=== PATIENT | male | born 1950 | race Caucasian/White ===

== ENCOUNTER 2019-02-01 19:10 | Inpatient (IN) | payer MEDICARE, OTHER ==
[2019-02-01] VITALS (8 sets, daily range): BP systolic 97–133; BP diastolic 65–79; BMI 32.5
[~2019-02-01] VITALS: Ht 170.2 cm; Wt 92.0 kg
[2019-02-01] MEDS ORDERED: SYNTHROID150 MCG PO (19:17)
[2019-02-01] MEDS ORDERED: VASOTEC20 MG PO (19:18)
[2019-02-01] MEDS ORDERED: ZOCOR20 MG PO (19:18)
[2019-02-01] MEDS ORDERED: PROTONIX40 MG PO (19:18)
[2019-02-01] MEDS ORDERED: ZETIA10 MG PO (19:19)
[2019-02-01] MEDS ORDERED: AXIRON30 MG/1.5 (19:19)
[2019-02-01] MEDS ORDERED: BAYER CHEWABLE81 MG PO (19:20)
[2019-02-01 20:00] LABS: BASOPHILS 0.7 % (0-2); EOSINOPHILS 1.8 % (0-7); HEMATOCRIT 48.8 % (42.0-54.0); HEMOGLOBIN 17.1 g/dL (13.5-17.5); IMMATURE GRANULOCYTES 0.2 % (0-5); LYMPHOCYTES 30.9 % (15-50); MCH 34.3 pg (26.0-34.0); MCV 97.8 fL (80.0-100.0); MEAN PLATELET VOLUME 10.1 fL (7.4-10.4); NEUTROPHILS 57.4 % (40-80); PLATELET COUNT 228 10x3/uL (130-400); RBC 4.99 10x6/uL (4.20-6.10); RDW 13.2 % (11.5-14.5); WBC 8.3 10x3/uL (4.8-10.8)
[2019-02-01 20:08] LABS: INR 1.32 (0.85-1.17); PROTIME 15.8 SECONDS (11.6-15.0)
[2019-02-01 20:09] LABS: APTT 75.5 SECONDS (22.8-39.4)
[2019-02-01 20:32] LABS: ALBUMIN 3.4 g/dL (3.4-5.0); ALKALINE PHOSPHATASE 53 U/L (46-116); ALT (SGPT) 36 U/L (10-68); BILIRUBIN - TOTAL 0.42 mg/dL (0.2-1.3); CALC OSMOLALITY 284 mosm/kg (275-300); CALCIUM 7.7 mg/dL (8.5-10.1); CARBON DIOXIDE 25.7 mmol/L (21.0-32.0); CHLORIDE - SERUM 106 mmol/L (98-107); CKMB 2.3 U/L (0.0-3.6); CREATINE KINASE 337 UL (21-232); CREATININE - SERUM 1.1 mg/dL (0.6-1.3); GLUCOSE 133 mg/dL (74-106); MAGNESIUM - SERUM 2.6 mg/dL (1.8-2.4); PRO BNP 80 pg/mL (0-125); PROTEIN - SERUM 6.6 g/dL (6.4-8.2); SODIUM 141 mmol/L (136-145); UREA NITROGEN 18 mg/dL (7-18); eGFR NON AFRICAN AMERICAN 71 mL/min (90-120)
[2019-02-02] VITALS: BP 124/54
[2019-02-02 05:00] VITALS: BP 125/68
[2019-02-02 08:32] VITALS: Ht 170.2 cm; Wt 92.0 kg
[2019-02-02 08:41] LABS: BASOPHILS 0.7 % (0-2); EOSINOPHILS 2.7 % (0-7); HEMATOCRIT 50.2 % (42.0-54.0); HEMOGLOBIN 17.7 g/dL (13.5-17.5); IMMATURE GRANULOCYTES 0.4 % (0-5); LYMPHOCYTES 29.5 % (15-50); MCH 34.6 pg (26.0-34.0); MCHC 35.3 g/dL (31.0-37.0); MEAN PLATELET VOLUME 9.9 fL (7.4-10.4); MONOCYTES 7.8 % (2-11); NEUTROPHILS 58.9 % (40-80); PLATELET COUNT 194 10x3/uL (130-400); RBC 5.12 10x6/uL (4.20-6.10); RDW 13.1 % (11.5-14.5); WBC 8.1 10x3/uL (4.8-10.8)
[2019-02-02 08:46] VITALS: BP 138/77
[2019-02-02 08:52] LABS: CALC OSMOLALITY 282 mosm/kg (275-300); CALCIUM 8.4 mg/dL (8.5-10.1); CARBON DIOXIDE 25.5 mmol/L (21.0-32.0); CHLORIDE - SERUM 105 mmol/L (98-107); GLUCOSE 153 mg/dL (74-106); SODIUM 140 mmol/L (136-145); UREA NITROGEN 14 mg/dL (7-18); eGFR NON AFRICAN AMERICAN 79 mL/min (90-120)
[2019-02-02 12:00] VITALS: BP 125/62
[2019-02-02 12:39] LABS: APPEARANCE CLEAR (CLEAR); COLOR STRAW (YELLOW); NITRITE NEGATIVE (NEGATIVE); PROTEIN NEGATIVE (NEGATIVE)
[2019-02-02 12:40] LABS: BILIRUBIN NEGATIVE (NEGATIVE); GLUCOSE 1000 mg/dL (NEGATIVE); KETONE NEGATIVE (NEGATIVE); UROBILINOGEN NORMAL (NORMAL)
[2019-02-02 16:11] VITALS: BP 128/71
[2019-02-02 21:23] VITALS: BP 131/63
[2019-02-03 01:20] VITALS: BP 117/72
[2019-02-03 05:33] VITALS: BP 156/76
[2019-02-03 06:52] LABS: BASOPHILS 0.7 % (0-2); EOSINOPHILS 3.7 % (0-7); HEMATOCRIT 47.8 % (42.0-54.0); HEMOGLOBIN 16.5 g/dL (13.5-17.5); IMMATURE GRANULOCYTES 0.3 % (0-5); LYMPHOCYTES 34.9 % (15-50); MCH 34.1 pg (26.0-34.0); MCHC 34.5 g/dL (31.0-37.0); MCV 98.8 fL (80.0-100.0); MEAN PLATELET VOLUME 10.4 fL (7.4-10.4); MONOCYTES 9.9 % (2-11); NEUTROPHILS 50.5 % (40-80); PLATELET COUNT 200 10x3/uL (130-400); RBC 4.84 10x6/uL (4.20-6.10); RDW 13.3 % (11.5-14.5); WBC 7.1 10x3/uL (4.8-10.8)
[2019-02-03 07:11] LABS: ALBUMIN 3.4 g/dL (3.4-5.0); ANION GAP 11.7 mmol/L (8-16); BILIRUBIN - TOTAL 0.3 mg/dL (0.2-1.3); CALCIUM 8.2 mg/dL (8.5-10.1); CARBON DIOXIDE 26.1 mmol/L (21.0-32.0); CREATININE - SERUM 1.1 mg/dL (0.6-1.3); MAGNESIUM - SERUM 2.3 mg/dL (1.8-2.4); POTASSIUM - SERUM 3.8 mmol/L (3.5-5.1); PROTEIN - SERUM 6.3 g/dL (6.4-8.2)
[2019-02-03 08:00] VITALS: BP 143/72
[2019-02-03 11:40] VITALS: BP 111/60
[2019-02-03] MEDS ORDERED: XARELTO20 MG PO (11:41)
[2019-02-03] MEDS ORDERED: MULTAQ400 MG PO (11:42)
--- NOTE | 2019-02-03 15:44 | MORECARE ---
CASE MANAGEMENT DISCHARGE SUMMARY PATIENT: WILNER ROY UNIT: [id number] ADM DATE: 02/02/19 AGE: 68 : 52 SEX: M ROOM/BED: D.2119 AUTHOR: ERICA KENNEDY PHYSICIAN: REFERRING PHYSICIAN: IRIS TSAI MD DATE OF SERVICE: 02/03/19 Discharge Plan Patient Name: WILNER ROY [facility] : 1950 Planned Disposition: Home Anticipated Discharge Date: 02/03/19 Discharge Date: 02/03/2019 Expected LOS: 1 Initial Reviewer: [email or web address] Initial Review Date: 02/03/2019 Generated: 02/03/19 4:43 pm DCPIA - Discharge Planning Initial Assessment Updated by [email or web address]: Junaid Nieto on 02/03/19 3:43 pm * Is the patient Alert and Oriented? Yes * How many steps to enter\exit or inside your home? 0-O / 11-I * PCP DR. ANALI BEAUCHAMP * Pharmacy [facility] IN [place] * Preadmission Environment Home with Family * ADLs Independent * Equipment CPAP * Other Equipment [employer], [employer] - MEDICAL EQUIPMENT PROVIDER * List name and contact numbers for known caregivers / representatives who currently or will assist patient after discharge: JUAN ROY, DTR, * Verbal permission to speak to the caregivers and representatives has been obtained from the patient. N/A * Community resources currently utilized None * Please name any agencies selected above. NONE * Additional services required to return to the preadmission environment? No * Can the patient safely return to the preadmission environment? Yes * Has this patient been hospitalized within the prior 30 days at any hospital? No Patient Name: WILNER ROY Page [id number] at 1544 All edits/amendments must be made on the electronic document DICTATION DATE: 02/03/191542 ENVIRONMENTAL ISSUES INSTRUCTOR: DUY 02/03/191542 RPT#: [id number] DC DATE:02/03/19 STATUS: DIS IN [facility] [address] [place] [address] END OF REPORT
--- NOTE | 2019-02-03 15:52 | MORECARE ---
CASE MANAGEMENT DISCHARGE SUMMARY PATIENT: WILNER ROY UNIT: [id number] ADM DATE: 02/02/19 AGE: 68 : 52 SEX: M ROOM/BED: D.1735 AUTHOR: MARCIA,DOC PHYSICIAN: REFERRING PHYSICIAN: IRIS TSAI MD DATE OF SERVICE: 02/03/19 Discharge Plan Patient Name: WILNER ROY Facility: [facility]:[place] : 1950 Planned Disposition: Home Anticipated Discharge Date: 02/03/19 Discharge Date: 02/03/2019 Expected LOS: 1 Initial Reviewer: [email or web address] Initial Review Date: 02/03/2019 Generated: 02/03/19 4:52 pm Comments DCP- Discharge Planning Updated by [email or web address]: Junaid Nieto on 02/03/19 2:[address] Patient Name: WILNER ROY Admission Status: ER Accout number: [id number] Admission Date: 02-02-2019 : 1950 Admission Diagnosis: Attending: IRIS TSAI Current LOS: 1 Anticipated DC Date: 02-03-2019 Planned Disposition: Home Primary Insurance: MEDICARE A & B Discharge Planning Comments: CM MET WITH PT IN ROOM TO DISCUSS DISCHARGE PLANNING AND NEEDS. PT REPORTS LIVING AT HOME INDEPENDENTLY WITH ADULT DAUGHTER. PT HAS CPAP FROM [facility] [facility] OUT OF [place]. PT HAS NO OUTSIDE SERVICES ASSISTING IN THE HOME. CM DISCUSSED AVAILABILITY OF HOME HEALTH, REHAB SERVICES AND MEDICAL EQUIPMENT. PT DENIES DISCHARGE NEEDS, REPORTS HIS DAUGHTER IS HERE TO PICK HIM UP FOR DISCHARGE HOME. RETAIL SALES ASSOCIATE SEASONAL NURSE NOTIFIED. Chief Wheelage Clerk: Junaid Nieto DCPIA - Discharge Planning Initial Assessment Updated by [email or web address]: Junadi Nieto on 02/03/19 3:43 pm * Is the patient Alert and Oriented? Yes * How many steps to enter\exit or inside your home? 0-O / 11-I * PCP DR. ANALI BEAUCHAMP * Pharmacy [facility] IN [place] * Preadmission Environment Home with Family * ADLs Independent * Equipment CPAP * Other Equipment [employer] - MEDICAL EQUIPMENT PROVIDER * List name and contact numbers for known caregivers / representatives who currently or will assist patient after discharge: JUAN MANUELA, DTR, * Verbal permission to speak to the caregivers and representatives has been obtained from the patient. N/A * Community resources currently utilized None * Please name any agencies selected above. NONE * Additional services required to return to the preadmission environment? No * Can the patient safely return to the preadmission environment? Yes * Has this patient been hospitalized within the prior 30 days at any hospital? No Last DP export: 02/03/19 2:44 p Patient Name: WILNER ROY Page [id number] at 1552 All edits/amendments must be made on the electronic document DICTATION DATE: 02/03/191550 DISPATCHER CHIEF COAL SLURRY: DUY 02/03/191550 RPT#: [id number] DC DATE:02/03/19 STATUS: DIS IN [facility] [address] [place] [address] END OF REPORT
[2019-02-11 15:14] LABS: AEROBE ID Final report (())
== END 2019-02-03 14:05 | disposition home or self-care (01) | DRG 310 ==
LOC: D.ER 19:10 → OBSVTIME 20:13 → D.EDHOLD 20:13 → D.M2 20:25
PROVIDERS: Family Medicine; ADMIT Internal Medicine Nephrology; ATTEND Internal Medicine Nephrology
DX: I48.91 Unspecified atrial fibrillation (principal); I10 Essential (primary) hypertension; K21.9 Gastro-esophageal reflux disease without esophagitis; M19.90 Unspecified osteoarthritis, unspecified site; R79.89 Other specified abnormal findings of blood chemistry; E03.9 Hypothyroidism, unspecified; Z87.891 Personal history of nicotine dependence

== ENCOUNTER 2019-03-16 09:45 | Inpatient (IN) | payer MEDICARE, OTHER ==
[~2019-03-16 09:45] MED LIST: AXIRON30 MG/1.5; BAYER CHEWABLE81 MG PO; MULTAQ400 MG PO; PROTONIX40 MG PO; SYNTHROID150 MCG PO; VASOTEC20 MG PO; XARELTO20 MG PO; ZETIA10 MG PO; ZOCOR20 MG PO
[2019-03-16 10:12] VITALS: BP 123/62
[2019-03-16 10:36] LABS: BASOPHILS 0.3 % (0-2); HEMATOCRIT 46.2 % (42.0-54.0); HEMOGLOBIN 16.2 g/dL (13.5-17.5); IMMATURE GRANULOCYTES 0.3 % (0-5); LYMPHOCYTES 20.8 % (15-50); MCH 33.8 pg (26.0-34.0); MCHC 35.1 g/dL (31.0-37.0); MCV 96.5 fL (80.0-100.0); MONOCYTES 8.6 % (2-11); RBC 4.79 10x6/uL (4.20-6.10); RDW 12.3 % (11.5-14.5); WBC 11.7 10x3/uL (4.8-10.8)
[2019-03-16 10:43] LABS: PLATELET COUNT 287 10x3/uL (130-400)
[2019-03-16 10:52] LABS: ALBUMIN 3.5 g/dL (3.4-5.0); ALKALINE PHOSPHATASE 47 U/L (46-116); ALT (SGPT) 39 U/L (10-68); CALC OSMOLALITY 275 mosm/kg (275-300); CALCIUM 8.5 mg/dL (8.5-10.1); CARBON DIOXIDE 26.1 mmol/L (21.0-32.0); CHLORIDE - SERUM 104 mmol/L (98-107); CREATININE - SERUM 1.1 mg/dL (0.6-1.3); GLUCOSE 101 mg/dL (74-106); POTASSIUM - SERUM 3.9 mmol/L (3.5-5.1); PROTEIN - SERUM 6.8 g/dL (6.4-8.2); SODIUM 138 mmol/L (136-145); UREA NITROGEN 13 mg/dL (7-18); eGFR NON AFRICAN AMERICAN 71 mL/min (90-120)
[2019-03-16 11:11] LABS: MAGNESIUM - SERUM 2.5 mg/dL (1.8-2.4)
[2019-03-16 11:12] LABS: CKMB 4.3 U/L (0.0-3.6); CREATINE KINASE 1545 UL (21-232)
--- NOTE | 2019-03-16 12:13 | NUR ---
PT SITTING IN BED, SEMI MATHEWS'S WITH RESPIRATIONS EVEN AND UNLABORED. NO SIGNS OF DISRESS. CALL LIGHT INREACH. BLANKET PROVIDED AND LIGHTS DIMMED FOR COMFORT. WILL CONTINUE TO MONITOR.
[2019-03-16 12:30] VITALS: BP 122/61
[2019-03-16 13:30] VITALS: BP 125/68
--- NOTE | 2019-03-16 15:00 | NUR ---
SURGICAL CONSENT FORMS SIGNED, THIS NURSE INSTRUCTED TO PRE-OP PT PER NATALYA IN OR. NO PRE-OP ORDERS ON EMAR AT THAT TIME. EMAR PRINTED AND GIVEN TO Neda FRANCISCO, ED MAINTENANCE MILLWRIGHT AT 0204. NURSE ENTERED PT'S ROOM AT 1500 AND PT WAS NO LONGER IN ED. MAINTENANCE MILLWRIGHT NOTIFIED. UNABLE TO GATHER DISPO VS D/T NOT BEING IN ED AND BEING TAKEN TO OR WITHOUT THIS NURSE BEING NOTIFIED.
--- NOTE | 2019-03-16 15:23 | MORECARE ---
CASE MANAGEMENT DISCHARGE SUMMARY PATIENT: WILNER REED UNIT: [id number] ADM DATE: 03/16/19 AGE: 68 : 52 SEX: M ROOM/BED: D.E06 AUTHOR: ERICA KENNEDY PHYSICIAN: REFERRING PHYSICIAN: TESSIE SONI MD DATE OF SERVICE: 03/16/19 Discharge Plan Patient Name: WILNER REED [facility] [facility] 1950 Planned Disposition: Home Anticipated Discharge Date: 03/18/19 Discharge Date: Expected LOS: 2 Initial Reviewer: [email or web address] Initial Review Date: 03/16/2019 Generated: 03/16/19 4:23 pm DCPIA - Discharge Planning Initial Assessment Updated by [email or web address]: Britany Guerrier on 03/16/19 3:22 pm * Is the patient Alert and Oriented? Yes * How many steps to enter\exit or inside your home? [place] * PCP [facility] Aguilar in [facility] * Pharmacy [facility] in [place] * Preadmission Environment Home with Family * ADLs Independent * Equipment None * List name and contact numbers for known caregivers / representatives who currently or will assist patient after discharge: Lucia Reed - daughter - [phone] * Verbal permission to speak to the caregivers and representatives has been obtained from the patient. Yes * Community resources currently utilized None * Additional services required to return to the preadmission environment? No * Can the patient safely return to the preadmission environment? Yes * Has this patient been hospitalized within the prior 30 days at any hospital? No Patient Name: WILNER REED Page 38984 at 1523 All edits/amendments must be made on the electronic document DICTATION DATE: 03/16/19 1523 PEDIATRIC DERMATOLOGIST: DUY 03/16/19 1523 RPT#: [id number] DC DATE: STATUS: ADM IN [facility] [address] [place] [address] END OF REPORT
--- NOTE | 2019-03-16 15:31 | MORECARE ---
CASE MANAGEMENT DISCHARGE SUMMARY PATIENT: WILNER REED UNIT: [id number] ADM DATE: 03/16/19 AGE: 68 : 52 SEX: M ROOM/BED: D.E06 AUTHOR: MARCIADOC PHYSICIAN: REFERRING PHYSICIAN: TESSIE SONI MD DATE OF SERVICE: 03/16/19 Discharge Plan Patient Name: WILNER REED Facility: [facility]:[place] : 1950 Planned Disposition: Home Anticipated Discharge Date: 03/18/19 Discharge Date: Expected LOS: 2 Initial Reviewer: [email or web address] Initial Review Date: 03/16/2019 Generated: 03/16/19 4:31 pm DCP- Discharge Planning Updated by [email or web address]: Britany Guerrier on 03/16/19 2:[address] Patient Name: WILNER REED Admission Status: ER Accout number: [id number] Admission Date: 03-16-2019 : 1950 Admission Diagnosis: Attending: TESSIE PALACIOS Current LOS: 1 Anticipated DC Date: 03-18-2019 Planned Disposition: Home Primary Insurance: MEDICARE A & B Discharge Planning Comments: CM met with patient to complete initial dc planning assessment. CM educated patient on the CM role and verbal consent given by patient to complete assessment. CM verified patient's address, phone number, and emergency contact phone numbers. Patient lives at home with his daughter and reports he is independent in his care at home. At discharge patient plans to return home with his daughter and feels this is a safe discharge. CM discussed availability of home health, rehab services, and medical equipment. Patient denied known discharge needs at this time. Patient reports he has his truck in the parking lot that he can drive himself at dc but is he is not able his daughter will transport him/her home at time of discharge. CM will continue to follow and will assist as needed with dc plans/needs. Store Receiver: Britany Guerrier RN, [facility] DCPIA - Discharge Planning Initial Assessment Updated by [email or web address]: Britany Guerrier on 03/16/19 3:22 pm * Is the patient Alert and Oriented? Yes * How many steps to enter\exit or inside your home? ONe * PCP Dr. Aguilar in [place] * Pharmacy [facility] in [place] * Preadmission Environment Home with Family * ADLs Independent * Equipment None * List name and contact numbers for known caregivers / representatives who currently or will assist patient after discharge: Lucia Reed - daughter - [phone] * Verbal permission to speak to the caregivers and representatives has been obtained from the patient. Yes * Community resources currently utilized None * Additional services required to return to the preadmission environment? No * Can the patient safely return to the preadmission environment? Yes * Has this patient been hospitalized within the prior 30 days at any hospital? No Last DP export: 03/16/19 2:23 p Patient Name: WILNER REED Page 58893 at 1531 All edits/amendments must be made on the electronic document DICTATION DATE: 03/16/191530 CONCRETE VIBRATOR OPERATOR: DUY 03/16/191530 RPT#: [id number] DC DATE: STATUS: ADM IN [facility] [address] [place] [address] END OF REPORT
[2019-03-16 16:43] VITALS: BP 119/67
[2019-03-16 17:50] VITALS: BMI 31.4
[2019-03-16 20:11] VITALS: BP 120/51
[2019-03-17 00:20] VITALS: BP 113/59
[2019-03-17 04:55] VITALS: BP 118/59
[2019-03-17 06:44] LABS: CALC OSMOLALITY 279 mosm/kg (275-300); CALCIUM 8.3 mg/dL (8.5-10.1); CARBON DIOXIDE 26.4 mmol/L (21.0-32.0); CHLORIDE - SERUM 105 mmol/L (98-107); GLUCOSE 126 mg/dL (74-106); POTASSIUM - SERUM 4.4 mmol/L (3.5-5.1); SODIUM 139 mmol/L (136-145); UREA NITROGEN 12 mg/dL (7-18); eGFR NON AFRICAN AMERICAN 79 mL/min (90-120)
--- NOTE | 2019-03-17 07:45 | NUR ---
PT AAOX4 RESP EVEN AND NONLABORED, NO SIGNS OF DISTRESS NOTED, REQUESTING SOME WATER AND FOR URINAL TO BE EMPITED AT THIS TIME WILL CONTINUE TO MONITOR, CL IN REACH
[2019-03-17 07:58] LABS: BASOPHILS 0.1 % (0-2); EOSINOPHILS 0 % (0-7); HEMATOCRIT 41.7 % (42.0-54.0); HEMOGLOBIN 14.5 g/dL (13.5-17.5); IMMATURE GRANULOCYTES 0.3 % (0-5); LYMPHOCYTES 7.2 % (15-50); MCH 33.4 pg (26.0-34.0); MCHC 34.8 g/dL (31.0-37.0); MCV 96.1 fL (80.0-100.0); MEAN PLATELET VOLUME 10.7 fL (7.4-10.4); MONOCYTES 4.8 % (2-11); NEUTROPHILS 87.6 % (40-80); PLATELET COUNT 285 10x3/uL (130-400); RBC 4.34 10x6/uL (4.20-6.10); RDW 12.3 % (11.5-14.5); WBC 15.1 10x3/uL (4.8-10.8)
[2019-03-17 09:14] VITALS: BP 128/64
[2019-03-17 12:00] VITALS: BP 148/62
[2019-03-17 15:01] VITALS: BP 133/60
--- NOTE | 2019-03-17 18:42 | NUR ---
I have reviewed this patient and I concur with the Shift Assessment completed by the Licensed Practical Nurse today this shift.
[2019-03-17 20:00] VITALS: BP 138/55
[2019-03-18 00:38] VITALS: BP 120/57
[2019-03-18 05:03] VITALS: BP 122/63
[2019-03-18 06:02] LABS: BASOPHILS 0.4 % (0-2); EOSINOPHILS 1.9 % (0-7); HEMATOCRIT 41.9 % (42.0-54.0); HEMOGLOBIN 14.3 g/dL (13.5-17.5); IMMATURE GRANULOCYTES 0.3 % (0-5); LYMPHOCYTES 27.1 % (15-50); MCH 33.3 pg (26.0-34.0); MCHC 34.1 g/dL (31.0-37.0); MCV 97.7 fL (80.0-100.0); MEAN PLATELET VOLUME 10.5 fL (7.4-10.4); NEUTROPHILS 62.3 % (40-80); PLATELET COUNT 271 10x3/uL (130-400); RBC 4.29 10x6/uL (4.20-6.10); RDW 12.8 % (11.5-14.5)
[2019-03-18 06:03] LABS: ALKALINE PHOSPHATASE 37 U/L (46-116); ALT (SGPT) 39 U/L (10-68); BILIRUBIN - TOTAL 0.27 mg/dL (0.2-1.3); CALC OSMOLALITY 285 mosm/kg (275-300); CALCIUM 8.1 mg/dL (8.5-10.1); CARBON DIOXIDE 28.7 mmol/L (21.0-32.0); CHLORIDE - SERUM 108 mmol/L (98-107); CREATININE - SERUM 0.8 mg/dL (0.6-1.3); GLUCOSE 111 mg/dL (74-106); POTASSIUM - SERUM 4.3 mmol/L (3.5-5.1); SODIUM 143 mmol/L (136-145); UREA NITROGEN 12 mg/dL (7-18); eGFR NON AFRICAN AMERICAN > 90 mL/min (90-120)
[2019-03-18 06:36] LABS: WBC 11.1 10x3/uL (4.8-10.8)
--- NOTE | 2019-03-18 06:45 | NUR ---
MEDS GIVEN PER MAR. ALL NEEDS MET.
[2019-03-18 09:16] VITALS: BP 114/61
[2019-03-18 13:37] VITALS: BP 130/67
[2019-03-18 16:48] VITALS: BP 114/61
[2019-03-18 20:00] VITALS: BP 140/64
--- NOTE | 2019-03-18 20:00 | NUR ---
ASSESSMENT PER FLOWSHEET. DRESSING TO RT LEG C/D/I. BILATERAL PLEXI BOOTS ON SALINE LOCK PATENT LEFT FOREARM. ALERT/ORIENTED X3. DUNG DRAIN PATENT AND COMPRESSED. WITH BLOODY DRAINAGE NOTED.MARC BOWMAN ON. DENIES PAIN SR UP X2 CALL LIGHT WITHIN REACH.
--- NOTE | 2019-03-18 23:00 | NUR ---
EYES CLOSED RESPIRATIONS WITH EASE AND UNLABORED. VOIDS WELL IN URINAL.
[2019-03-19] VITALS: BP 121/60
[2019-03-19 04:00] VITALS: BP 119/69
[2019-03-19 06:17] LABS: BASOPHILS 0.5 % (0-2); EOSINOPHILS 3.6 % (0-7); HEMATOCRIT 42.5 % (42.0-54.0); HEMOGLOBIN 14.5 g/dL (13.5-17.5); IMMATURE GRANULOCYTES 0.4 % (0-5); LYMPHOCYTES 34.2 % (15-50); MCH 33.4 pg (26.0-34.0); MCHC 34.1 g/dL (31.0-37.0); MCV 97.9 fL (80.0-100.0); MEAN PLATELET VOLUME 10.4 fL (7.4-10.4); MONOCYTES 8.4 % (2-11); NEUTROPHILS 52.9 % (40-80); PLATELET COUNT 274 10x3/uL (130-400); RBC 4.34 10x6/uL (4.20-6.10); RDW 12.9 % (11.5-14.5); WBC 9.4 10x3/uL (4.8-10.8)
[2019-03-19 06:35] LABS: ALKALINE PHOSPHATASE 41 U/L (46-116); ALT (SGPT) 46 U/L (10-68); BILIRUBIN - TOTAL 0.33 mg/dL (0.2-1.3); CALC OSMOLALITY 279 mosm/kg (275-300); CALCIUM 8.5 mg/dL (8.5-10.1); CARBON DIOXIDE 28.5 mmol/L (21.0-32.0); CHLORIDE - SERUM 107 mmol/L (98-107); CREATININE - SERUM 0.9 mg/dL (0.6-1.3); GLUCOSE 98 mg/dL (74-106); POTASSIUM - SERUM 4.2 mmol/L (3.5-5.1); PROTEIN - SERUM 6.2 g/dL (6.4-8.2); SODIUM 140 mmol/L (136-145); UREA NITROGEN 14 mg/dL (7-18); eGFR NON AFRICAN AMERICAN 90 mL/min (90-120)
[2019-03-19 08:45] VITALS: BP 122/78
--- NOTE | 2019-03-19 11:43 | MORECARE ---
CASE MANAGEMENT DISCHARGE SUMMARY PATIENT: WILNER REED UNIT: [id number] ADM DATE: 03/16/19 AGE: 68 : 54 SEX: M ROOM/BED: D.2216 AUTHOR: MARCIA,DOC PHYSICIAN: REFERRING PHYSICIAN: TESSIE SONI MD DATE OF SERVICE: 03/19/19 Discharge Plan Patient Name: WILNER REED Facility: [facility]:[place] : 1950 Planned Disposition: Home Anticipated Discharge Date: 03/18/19 Discharge Date: Expected LOS: 2 Initial Reviewer: [id number] Initial Review Date: 03/16/2019 Generated: 03/19/19 12:42 pm DCP- Discharge Planning Updated by [email or web address]: Britany Guerrier on 03/16/19 2:[address] Patient Name: WILNER REED Admission Status: ER Accout number: [id number] Admission Date: 03-16-2019 : 1950 Admission Diagnosis: Attending: TESSIE PALACIOS Current LOS: 1 Anticipated DC Date: 03-18-2019 Planned Disposition: Home Primary Insurance: MEDICARE A & B Discharge Planning Comments: CM met with patient to complete initial dc planning assessment. CM educated patient on the CM role and verbal consent given by patient to complete assessment. CM verified patient's address, phone number, and emergency contact phone numbers. Patient lives at home with his daughter and reports he is independent in his care at home. At discharge patient plans to return home with his daughter and feels this is a safe discharge. CM discussed availability of home health, rehab services, and medical equipment. Patient denied known discharge needs at this time. Patient reports he has his truck in the parking lot that he can drive himself at dc but is he is not able his daughter will transport him/her home at time of discharge. CM will continue to follow and will assist as needed with dc plans/needs. Tire Installer: Britany Guerrier RN, [facility] DCPIA - Discharge Planning Initial Assessment Updated by [email or web address]: Britany Guerrier on 03/16/19 3:22 pm * Is the patient Alert and Oriented? Yes * How many steps to enter\exit or inside your home? ONe * PCP [facility] Aguilar in [facility] * Pharmacy [facility] in [place] * Preadmission Environment Home with Family * ADLs Independent * Equipment None * List name and contact numbers for known caregivers / representatives who currently or will assist patient after discharge: Lucia Reed - daughter - [phone] * Verbal permission to speak to the caregivers and representatives has been obtained from the patient. Yes * Community resources currently utilized None * Additional services required to return to the preadmission environment? No * Can the patient safely return to the preadmission environment? Yes * Has this patient been hospitalized within the prior 30 days at any hospital? No Coverage Notice Reviewer: [email or web address] Justice Notice Issued Date-Time: 03/19/2019 11:35 Notice Type: IM Discharge Notice Notice Delivered To: Patient Relationship to Patient: Cook Sauce Name: Delivery Method: HAND - Hand Delivered So Days: Prior Verbal Notification: Recipient Understood Notice: Yes Recipient Signature: Yes Med Rec Note Co-signed by Attending: Coverage Notice Comment: Reviewer: [email or web address] Justice Notice Issued Date-Time: 03/19/2019 11:35 Notice Type: Patient Choice Letter Notice Delivered To: Patient Relationship to Patient: Cook Sauce Name: Delivery Method: - So Days: Prior Verbal Notification: Recipient Understood Notice: Yes Recipient Signature: Yes Med Rec Note Co-signed by Attending: Coverage Notice Comment: Last DP export: 03/16/19 2:31 p Patient Name: WILNER REED Page 05246 at 1143 All edits/amendments must be made on the electronic document DICTATION DATE: 03/19/19 1142 NET DEVELOPER SOFTWARE ENGINEER C: DUY 03/19/19 1142 RPT#: [id number] DC DATE: STATUS: ADM IN [facility] [address] [place] [address] END OF REPORT
--- NOTE | 2019-03-19 11:52 | MORECARE ---
CASE MANAGEMENT DISCHARGE SUMMARY PATIENT: WILNER REED UNIT: [id number] ADM DATE: 03/16/19 AGE: 68 : 54 SEX: M ROOM/BED: D.2216 AUTHOR: MARCIADOC PHYSICIAN: REFERRING PHYSICIAN: TESSIE SONI MD DATE OF SERVICE: 03/19/19 Discharge Plan Patient Name: WILNER REED Facility: [facility]:[place] : 1950 Planned Disposition: Home Anticipated Discharge Date: 03/18/19 Discharge Date: Expected LOS: 2 Initial Reviewer: [email or web address] Initial Review Date: 03/16/2019 Generated: 03/19/19 12:52 pm Comments DCP- Discharge Planning Updated by [email or web address]: Ericka Justice on 03/19/19 10:[address] Patient will be discharging home with [facility] in [facility] signed and placed in chart. IMM served and placed in chart. I spoke with Luaren at the [facility] office they will accept. Patient will be driving himself home and denies any problems with that DCP- Discharge Planning Updated by [email or web address]: Britany Guerrier on 03/16/19 2:[address] Patient Name: WILNER REED Admission Status: ER Accout number: [id number] Admission Date: 03-16-2019 : 1950 Admission Diagnosis: Attending: TESSIE PALACIOS Current LOS: 1 Anticipated DC Date: 03-18-2019 Planned Disposition: Home Primary Insurance: MEDICARE A & B Discharge Planning Comments: CM met with patient to complete initial dc planning assessment. CM educated patient on the CM role and verbal consent given by patient to complete assessment. CM verified patient's address, phone number, and emergency contact phone numbers. Patient lives at home with his daughter and reports he is independent in his care at home. At discharge patient plans to return home with his daughter and feels this is a safe discharge. CM discussed availability of home health, rehab services, and medical equipment. Patient denied known discharge needs at this time. Patient reports he has his truck in the parking lot that he can drive himself at dc but is he is not able his daughter will transport him/her home at time of discharge. CM will continue to follow and will assist as needed with dc plans/needs. Farmworker Grain: Britany Guerrier RN, [facility] DCPIA - Discharge Planning Initial Assessment Updated by [email or web address]: Britany Guerrier on 03/16/19 3:22 pm * Is the patient Alert and Oriented? Yes * How many steps to enter\exit or inside your home? ONe * PCP [facility] Aguilar in [facility] * Pharmacy [facility] in [place] * Preadmission Environment Home with Family * ADLs Independent * Equipment None * List name and contact numbers for known caregivers / representatives who currently or will assist patient after discharge: Lucia Reed - daughter - [phone] * Verbal permission to speak to the caregivers and representatives has been obtained from the patient. Yes * Community resources currently utilized None * Additional services required to return to the preadmission environment? No * Can the patient safely return to the preadmission environment? Yes * Has this patient been hospitalized within the prior 30 days at any hospital? No External Providers External Provider: [facility] Next Contact Date: Service Request Date: Service Type: Resolution: Reviewer: Comments: Coverage Notice Reviewer: [email or web address] Jordon Justice Notice Issued Date-Time: 03/19/2019 11:35 Notice Type: IM Discharge Notice Notice Delivered To: Patient Relationship to Patient: Fingerprint Technician Name: Delivery Method: HAND - Hand Delivered So Days: Prior Verbal Notification: Recipient Understood Notice: Yes Recipient Signature: Yes Med Rec Note Co-signed by Attending: Coverage Notice Comment: Reviewer: [email or web address] Justice Notice Issued Date-Time: 03/19/2019 11:35 Notice Type: Patient Choice Letter Notice Delivered To: Patient Relationship to Patient: Fingerprint Technician Name: Delivery Method: - So Days: Prior Verbal Notification: Recipient Understood Notice: Yes Recipient Signature: Yes Med Rec Note Co-signed by Attending: Coverage Notice Comment: Last DP export: 03/19/19 10:43 am Patient Name: WILNER REED Page 10094 at 1152 All edits/amendments must be made on the electronic document DICTATION DATE: 03/19/19 1151 RADIO MECHANIC HELPER: DUY 03/19/19 1151 RPT#: [id number] DC DATE: STATUS: ADM IN [facility] [address] [place] [address] END OF REPORT
--- NOTE | 2019-03-19 12:23 | NUR ---
PT IS WITHOUT DISTRESS.WILL DC HOME
--- NOTE | 2019-03-23 08:21 | MORECARE ---
CASE MANAGEMENT DISCHARGE SUMMARY PATIENT: WILNER REED UNIT: [id number] ADM DATE: 03/16/19 AGE: 68 : 52 SEX: M ROOM/BED: D.2216 AUTHOR: MARCIADOC PHYSICIAN: REFERRING PHYSICIAN: TESSIE SONI MD DATE OF SERVICE: 03/23/19 Discharge Plan Patient Name: WILNER REED Facility: [facility]:[place] : 1950 Planned Disposition: Home Anticipated Discharge Date: 03/18/19 Discharge Date: 03/19/2019 Expected LOS: 2 Initial Reviewer: [email or web address] Initial Review Date: 03/16/2019 Generated: 03/23/19 9:20 am Comments DCP- Discharge Planning Updated by [email or web address]: Ericka Justice on 03/19/19 10:[address] Patient will be discharging home with [facility] signed and placed in chart. IMM served and placed in chart. I spoke with Lauren at the [facility] office they will accept. Patient will be driving himself home and denies any problems with that DCP- Discharge Planning Updated by [email or web address]: Britany Guerrier on 03/16/19 2:[address] Patient Name: WILNER REED Admission Status: ER Accout number: [id number] Admission Date: 03-16-2019 : 1950 Admission Diagnosis: Attending: TESSIE PALACIOS Current LOS: 1 Anticipated DC Date: 03-18-2019 Planned Disposition: Home Primary Insurance: MEDICARE A & B Discharge Planning Comments: CM met with patient to complete initial dc planning assessment. CM educated patient on the CM role and verbal consent given by patient to complete assessment. CM verified patient's address, phone number, and emergency contact phone numbers. Patient lives at home with his daughter and reports he is independent in his care at home. At discharge patient plans to return home with his daughter and feels this is a safe discharge. CM discussed availability of home health, rehab services, and medical equipment. Patient denied known discharge needs at this time. Patient reports he has his truck in the parking lot that he can drive himself at dc but is he is not able his daughter will transport him/her home at time of discharge. CM will continue to follow and will assist as needed with dc plans/needs. Ginger Farmer: Britany Guerrier RN, [facility] DCPIA - Discharge Planning Initial Assessment Updated by [email or web address]: Britany Guerrier on 03/16/19 3:22 pm * Is the patient Alert and Oriented? Yes * How many steps to enter\exit or inside your home? ONe * PCP Dr. Aguilar in [facility] * Pharmacy [facility] in [place] * Preadmission Environment Home with Family * ADLs Independent * Equipment None * List name and contact numbers for known caregivers / representatives who currently or will assist patient after discharge: Lucia Reed - daughter - [phone] * Verbal permission to speak to the caregivers and representatives has been obtained from the patient. Yes * Community resources currently utilized None * Additional services required to return to the preadmission environment? No * Can the patient safely return to the preadmission environment? Yes * Has this patient been hospitalized within the prior 30 days at any hospital? No Coverage Notice Reviewer: [email or web address] Jordon Justice Notice Issued Date-Time: 03/19/2019 11:35 Notice Type: IM Discharge Notice Notice Delivered To: Patient Relationship to Patient: [employer] Supervisor Name: Delivery Method: HAND - Hand Delivered So Days: Prior Verbal Notification: Recipient Understood Notice: Yes Recipient Signature: Yes Med Rec Note Co-signed by Attending: Coverage Notice Comment: Reviewer: [email or web address] Justice Notice Issued Date-Time: 03/19/2019 11:35 Notice Type: Patient Choice Letter Notice Delivered To: Patient Relationship to Patient: [employer] Supervisor Name: Delivery Method: - So Days: Prior Verbal Notification: Recipient Understood Notice: Yes Recipient Signature: Yes Med Rec Note Co-signed by Attending: Coverage Notice Comment: Last DP export: 03/19/19 10:52 am Patient Name: WILNER REED Page [phone] at 0821 All edits/amendments must be made on the electronic document DICTATION DATE: 03/23/19819 CREDIT PORTFOLIO ADVISOR: DUY 03/23/19819 RPT#: [id number] DC DATE:03/19/19 STATUS: DIS IN [id number] [place] [address] END OF REPORT
== END 2019-03-19 13:22 | disposition home health service (06) | DRG 983 ==
LOC: D.ER 09:45 → D.EDHOLD 14:44 → D.MS 14:44
PROVIDERS: Family Medicine; Orthopaedic Surgery; ADMIT Family Medicine Adult Medicine; ATTEND Family Medicine Adult Medicine
PROC: 0KNR0ZZ Release Left Upper Leg Muscle, Open Approach (ICD-10-PCS; principal; 2019-03-16 14:00)
DX: T79.A21A Traumatic compartment syndrome of right lower extremity, initial encounter (principal); S70.12XA Contusion of left thigh, initial encounter; I48.91 Unspecified atrial fibrillation; I10 Essential (primary) hypertension; E78.5 Hyperlipidemia, unspecified; I80.02 Phlebitis and thrombophlebitis of superficial vessels of left lower extremity

== ENCOUNTER 2019-03-22 23:51 | Inpatient (IN) | payer MEDICARE, OTHER ==
[~2019-03-22] VITALS: Ht 170.2 cm; Wt 92.5 kg
--- NOTE | 2019-03-23 00:22 | NUR ---
GOOD PEDAL PULSE TO RIGHT FOOT. DRESSING DRY AND INTACT.
[2019-03-23 00:23] LABS: BASOPHILS 0.3 % (0-2); EOSINOPHILS 1.7 % (0-7); HEMATOCRIT 44.2 % (42.0-54.0); HEMOGLOBIN 15.8 g/dL (13.5-17.5); IMMATURE GRANULOCYTES 0.6 % (0-5); LYMPHOCYTES 10.2 % (15-50); MCH 34.2 pg (26.0-34.0); MCHC 35.7 g/dL (31.0-37.0); MCV 95.7 fL (80.0-100.0); MEAN PLATELET VOLUME 10.1 fL (7.4-10.4); NEUTROPHILS 80.2 % (40-80); RBC 4.62 10x6/uL (4.20-6.10); RDW 12.4 % (11.5-14.5); WBC 17.7 10x3/uL (4.8-10.8)
[2019-03-23 00:33] LABS: APTT 44.4 SECONDS (22.8-39.4)
[2019-03-23 00:34] LABS: INR 3.11 (0.85-1.17); PROTIME 31.2 SECONDS (11.6-15.0)
--- NOTE | 2019-03-23 00:34 | NUR ---
RIGHT LEG ELEVATED AND ICE PACKS APPLIED.
[2019-03-23 00:42] LABS: ALBUMIN 3.5 g/dL (3.4-5.0); ALKALINE PHOSPHATASE 52 U/L (46-116); ALT (SGPT) 31 U/L (10-68); BILIRUBIN - TOTAL 0.65 mg/dL (0.2-1.3); CALC OSMOLALITY 270 mosm/kg (275-300); CALCIUM 8.5 mg/dL (8.5-10.1); CARBON DIOXIDE 25.4 mmol/L (21.0-32.0); CHLORIDE - SERUM 100 mmol/L (98-107); GLUCOSE 125 mg/dL (74-106); POTASSIUM - SERUM 4.3 mmol/L (3.5-5.1); PROTEIN - SERUM 7.1 g/dL (6.4-8.2); SODIUM 135 mmol/L (136-145); UREA NITROGEN 13 mg/dL (7-18); eGFR NON AFRICAN AMERICAN 79 mL/min (90-120)
[2019-03-23 00:43] LABS: PLATELET COUNT 329 10x3/uL (130-400)
[2019-03-23] MEDS ORDERED: CIPRO500 MG PO (01:54)
[2019-03-23] MEDS ORDERED: K CLAV (01:54)
[2019-03-23] MEDS ORDERED: AMOX (01:54)
[2019-03-23] MEDS ORDERED: FLAGYL500 MG PO (01:55)
[2019-03-23] MEDS ORDERED: HYDROCODON-ACE1 EAC7 PO (01:56)
[2019-03-23 02:12] VITALS: BP 126/62; BMI 31.4
--- NOTE | 2019-03-23 02:20 | NUR ---
RECIEVED REPORT FROM ARNALDO CHAUHAN IN ER. ARRIVED TO FLOOR ON A STRETCHER WITH RIGHT LEG ELEVATED. ABLE TO TRANSFER SELF FROM STRETCHER TO BED BY SCOOTING OVER. IV TO LEFT FA WITH NS @ 125. LEG CONT TO BE ELEVATED AND HAS ICE PACKS ON IT. RIGHT LEG RED AND SWOLLEN. NPO AT THIS TIME. CONT TO HAVE SOME PAIN AND AWARE HE CAN HAVE PAIN MEDS Q2 HRS. PRN. DENIES ANY OTHER NEEDS AT THIS TIME.
[2019-03-23 04:57] VITALS: BP 126/62
--- NOTE | 2019-03-23 08:10 | NUR ---
RECIEVED CALL TO PREOP PT. PT PREOP ORDERED AND HAD PT SIGN CONSENTS WITH SECOND NURSE PRESENT. PT DENIES ANY QUESTIONS AT THIS TIME. WILL CONT TO FOLLOW POC
[2019-03-23 08:23] VITALS: BP 130/62
--- NOTE | 2019-03-23 08:40 | NUR ---
PT LEFT FLOOR FOR SURGERY
--- NOTE | 2019-03-23 10:20 | NUR ---
PT RETURNED TO THE FLOOR FROM SURGERY. DENIES PAIN AT THIS TIME. SHIFT ASSESSMENT PERFORMED. VSS AND WNL. WILL CONT TO FOLLOW POC
--- NOTE | 2019-03-23 10:45 | NUR ---
PT RESTING IN BED. DENIES PAIN AT THIS TIME. VSS AND WNL
--- NOTE | 2019-03-23 11:00 | NUR ---
VSS AND WNL, PT DENIES NEEDS AT THIS TIME. WILL CONT TO FOLLOW POC
--- NOTE | 2019-03-23 11:15 | NUR ---
VSS AND WNL. DENIES PAIN AT THIS TIME, SMALL AMOUNT OF BRIGHT RED DRAINAGE PRESENT ON DRESSING, REINFORCED DRESSING. DENIES ANY OTHER NEEDS AT THIS TIME
[2019-03-23 13:36] VITALS: BMI 30.2
--- NOTE | 2019-03-23 15:25 | NUR ---
POLICY ADVISOR REPORTS TEMP OF 102.5, NEW ORDER RECIEVED TO GIVE APAP 500MG Q4HR FOR FEVER.
[2019-03-23 15:40] VITALS: BP 122/63
--- NOTE | 2019-03-23 15:59 | NUR ---
PT SHIVERING, TEMP CHECKED, 102.5 NOTIFIED NEW ORDER RECIEVED TO GIVE APAP 500MG PO Q4HR PRN FOR SHIVERING
--- NOTE | 2019-03-23 16:44 | NUR ---
COORDINATOR HOTELS REPORTS FEVER OF 102. SPOKE WITH , NEW ORDER RECIEVED TO ALTERNATE TYLENOL AND IBUPROFEN Q2HR UNTIL FEVER IS BELOW 100.
--- NOTE | 2019-03-23 16:45 | NUR ---
LARGE AMOUNT OF BRIGHT RED DRAINAGE PRESENT ON DRESSING. DRESSING REINFORCED. DENIES ANY OTHER NEEDS AT THIS TIME, WILL CONT TO FOLLOW POC
[2019-03-23 16:54] VITALS: Ht 170.2 cm; Wt 92.5 kg
--- NOTE | 2019-03-23 17:25 | NUR ---
CALLED TO ROOM AND PATIENT TELLS ME "I FORGOT TO TELL YOU GUYS THAT I WAS JUST DIAGNOSED N [facility] WITH AUGUSTO MT SPOTED FEVER". KENYA, RN PRIMARY NURSE IS INFORMED OF THIS AND SHE IS GOING TO CALL PRIMARY. PATIENT STATES THAT HE DID NOT SONOGRAPHY TECHNICIAN MEDS FOR TREATMENT YET FROM [facility].
--- NOTE | 2019-03-23 17:42 | NUR ---
PT TOLD ANOTHER NURSE THAT HE WAS JUST DIAGNOSED WITH AUGUSTO MOUNTAIN SPOTTED FEVER IN [place] AND HAS NOT STARTED TREATMENT FOR IT. PAGED .
--- NOTE | 2019-03-23 19:06 | NUR ---
RECIEVED LAYING IN BED WITH EYES OPEN. RIGHT LEG HAS DSG THAT IS CLEAN DRY AND INTACT. LEG ELEVATED. IV TO LEFT FA AT TKO. REPORTED FROM OFF GOING THAT PT STATED HE WAS RECENTLY DIAGNOSIS WITH [facility] SPOTTED TICK FEVER AND DID NOT TAKE THE TX. REPORTED DR. TSAI AWARE. DENIES ANY NEEDS AT THIS TIME.
[2019-03-23 19:53] LABS: APPEARANCE CLEAR (CLEAR); BILIRUBIN NEGATIVE (NEGATIVE); COLOR YELLOW (YELLOW); GLUCOSE 50 mg/dL (NEGATIVE); KETONE NEGATIVE (NEGATIVE); NITRITE NEGATIVE (NEGATIVE); PROTEIN NEGATIVE (NEGATIVE); SPECIFIC GRAVITY 1.015 (1.005-1.020); UROBILINOGEN NORMAL (NORMAL)
[2019-03-23 20:18] VITALS: BP 109/49
[2019-03-24 00:32] VITALS: BP 101/44
[2019-03-24 04:09] VITALS: BP 90/51
[2019-03-24 06:23] LABS: BASOPHILS 0.3 % (0-2); EOSINOPHILS 2.8 % (0-7); IMMATURE GRANULOCYTES 0.3 % (0-5); LYMPHOCYTES 13.5 % (15-50); MCHC 33.8 g/dL (31.0-37.0); MCV 97.6 fL (80.0-100.0); MEAN PLATELET VOLUME 10.1 fL (7.4-10.4); MONOCYTES 10.3 % (2-11); NEUTROPHILS 72.8 % (40-80); RDW 12.3 % (11.5-14.5)
[2019-03-24 06:55] LABS: CALC OSMOLALITY 273 mosm/kg (275-300); CALCIUM 7.6 mg/dL (8.5-10.1); CARBON DIOXIDE 26.6 mmol/L (21.0-32.0); CHLORIDE - SERUM 105 mmol/L (98-107); CREATININE - SERUM 0.9 mg/dL (0.6-1.3); GLUCOSE 102 mg/dL (74-106); POTASSIUM - SERUM 4.2 mmol/L (3.5-5.1); SODIUM 137 mmol/L (136-145); UREA NITROGEN 13 mg/dL (7-18); eGFR NON AFRICAN AMERICAN 90 mL/min (90-120)
[2019-03-24 06:59] LABS: HEMATOCRIT 32.8 % (42.0-54.0); HEMOGLOBIN 11.1 g/dL (13.5-17.5); PLATELET COUNT 258 10x3/uL (130-400); RBC 3.36 10x6/uL (4.20-6.10)
--- NOTE | 2019-03-24 07:22 | NUR ---
ROUNDING DONE WITH PATIENT HAVING NO COMPLAINTS EXCEPT IV IS GOING OFF. FIXED IT. EMPTIED 700 CC CLEAR YELLOW URINE. RIGHT LEG IS UP ON PILLOW, LEXI DRESSING SEEN, C/D/I. GLASSES ON. LEFT FA PIV SEEN WITH NS INFUSING AT 125 CC/HR. ON ROOM AIR. WILL MONITOR.
[2019-03-24 08:00] VITALS: BP 101/42
--- NOTE | 2019-03-24 10:46 | NUR ---
TALKED TO PATIENT AND HE FINALLY CONSENTED TO SOME PAIN MEDICATION HE WORKED WITH THERAPY AND "FELT SEVERAL SHARP TWINGES TO MY LEG". I ASKED THAT HE ALSO TAKE THE NORCO ORDERED TO HELP WITH PAIN AND USE THE IV PAIN MEDCAITON BREAKTHROUGH.
--- NOTE | 2019-03-24 11:48 | MORECARE ---
CASE MANAGEMENT DISCHARGE SUMMARY PATIENT: WILNER REED UNIT: [id number] ADM DATE: 03/23/19 AGE: 68 : 52 SEX: M ROOM/BED: D.1315 AUTHOR: MARCIA,DOC PHYSICIAN: REFERRING PHYSICIAN: KIESHA MULTANI MD DATE OF SERVICE: 03/24/19 Discharge Plan Patient Name: WILNER REED Facility: [facility]:[place] : 1950 Planned Disposition: Anticipated Discharge Date: Discharge Date: Expected LOS: Initial Reviewer: [email or web address] Initial Review Date: 03/24/2019 Generated: 03/24/19 12:48 pm Comments DCP- Discharge Planning Updated by [email or web address]: Randa Gannon on 03/24/19 10:[address] Patient Name: WILNER REED Admission Status: ER Accout number: [id number] Admission Date: 03-23-2019 : 1950 Admission Diagnosis:PAIN IN RIGHT LEG Attending: KIESHA MULTANI Current LOS: 1 Anticipated DC Date: Planned Disposition: Primary Insurance: MEDICARE A & B Discharge Planning Comments: CM met with patient about discharge planning. CM explained CM role and verbal consent was given to do dc assessment. CM educated on Home Health, DME and rehab services that are available. Patient states his discharge plan is to return to home and resume HH with [facility] . States home environment is a safe dc. Denies any discharge planning needs at this time. [facility] Lucia Reed [phone] will drive him home upon discharge. CM will continue to follow and assist as needed with discharge planning needs. Taxi Driver: Randa Gannon DCPIA - Discharge Planning Initial Assessment Updated by [email or web address]: Randa Gannon on 03/24/19 11:45 am * Is the patient Alert and Oriented? Yes * How many steps to enter\exit or inside your home? na * PCP dr Aguilar in [facility] * Pharmacy [facility] * Preadmission Environment Home with Family * ADLs Independent * List name and contact numbers for known caregivers / representatives who currently or will assist patient after discharge: Lucia Reed [phone] * Verbal permission to speak to the caregivers and representatives has been obtained from the patient. N/A * Community resources currently utilized Home Health * Please name any agencies selected above. [facility] * Additional services required to return to the preadmission environment? No * Can the patient safely return to the preadmission environment? Yes * Has this patient been hospitalized within the prior 30 days at any hospital? Yes Patient Name: WILNER REED Page [phone] at 1148 All edits/amendments must be made on the electronic document DICTATION DATE: 03/24/191147 HEAD OF SCIENCE: DUY 03/24/19 1148 RPT#: [id number] DC DATE: STATUS: ADM IN [facility] [address] [place] [address] END OF REPORT
[2019-03-24 12:00] VITALS: BP 102/47
--- NOTE | 2019-03-24 12:24 | NUR ---
NORCO 1 TAB GIVEN FOR DISCOMFORT 2/10 TO RIGHT LOWER LEG.
[2019-03-24 16:30] VITALS: BP 101/52
--- NOTE | 2019-03-24 19:03 | NUR ---
BEDSIDE REPORT RECEIVED. PT IS AAO, HAS NS INFUSING AT 125 ORDERED. RIGHT LOWER LEG DRSG CDI. LEG ELEVATED ON PILLOW. PT DENIES ANY NEEDS AT THIS TIME. NAME AND DATE PLACED ON BOARD. PT WILL CALL FOR ASSIST WHEN NEEDED. WILL CPOC
--- NOTE | 2019-03-24 21:09 | NUR ---
NIGHT TIME MEDICATION GIVEN PT VERBALIZED UNDERSTANDING OF MEDICATION. NORCO GIVEN FOR PAIN. PT HAS NO S/S OF DISTRESS. BEDLOW AND CALL LIGHT IN REACH. WILL CPOC
[2019-03-24 21:16] VITALS: BP 111/50
[2019-03-25] VITALS (7 sets, daily range): BP systolic 93–118; BP diastolic 46–64
--- NOTE | 2019-03-25 02:34 | NUR ---
PT COMPLAINS OF PAIN. NORCO GIVEN ORDERED. VANC INFUSING ORDERED. PT DENIES ANY OTHER NEEDS. WILL CPOC
[2019-03-25 05:02] LABS: BASOPHILS 0.2 % (0-2); EOSINOPHILS 3.6 % (0-7); HEMATOCRIT 30.9 % (42.0-54.0); HEMOGLOBIN 10.7 g/dL (13.5-17.5); IMMATURE GRANULOCYTES 0.3 % (0-5); LYMPHOCYTES 22.9 % (15-50); MCH 33.4 pg (26.0-34.0); MCHC 34.6 g/dL (31.0-37.0); MCV 96.6 fL (80.0-100.0); MEAN PLATELET VOLUME 10.1 fL (7.4-10.4); MONOCYTES 10.7 % (2-11); NEUTROPHILS 62.3 % (40-80); PLATELET COUNT 238 10x3/uL (130-400); RDW 12.6 % (11.5-14.5); WBC 9.9 10x3/uL (4.8-10.8)
[2019-03-25 05:25] LABS: CALC OSMOLALITY 274 mosm/kg (275-300); CALCIUM 7.5 mg/dL (8.5-10.1); CARBON DIOXIDE 25.3 mmol/L (21.0-32.0); CHLORIDE - SERUM 107 mmol/L (98-107); CREATININE - SERUM 0.7 mg/dL (0.6-1.3); GLUCOSE 99 mg/dL (74-106); POTASSIUM - SERUM 4.3 mmol/L (3.5-5.1); SODIUM 138 mmol/L (136-145); eGFR NON AFRICAN AMERICAN > 90 mL/min (90-120)
[2019-03-25 05:37] LABS: UREA NITROGEN 9 mg/dL (7-18)
--- NOTE | 2019-03-25 06:23 | NUR ---
MORNING MEDICATIONS GIVEN. NORCO GIVEN FOR PAIN IN RIGHT LOWER LEG. PT DENIES ANY OTHER NEEDS. NO S/S OF DISTRESS. PT WILL CALL FOR ASSIST WHEN NEEDED. WILL CPOC
--- NOTE | 2019-03-25 07:10 | NUR ---
REPORT RECEIVED FROM MEAT GRINDER AND PATIENT CARE ASSUMED. PATIENT LAYING IN BED WITH EYES CLOSED AND BREATHING EVENLY. VSS. WILL CONTINUE WITH PLAN OF CARE. SR UP X 2 BED IN LOW POSTION AND CALL LIGHT IN REACH.
--- NOTE | 2019-03-25 07:53 | MORECARE ---
CASE MANAGEMENT DISCHARGE SUMMARY PATIENT: WILNER REED UNIT: [id number] ADM DATE: 03/23/19 AGE: 68 : 52 SEX: M ROOM/BED: D.4015 AUTHOR: MARCIA,DOC PHYSICIAN: REFERRING PHYSICIAN: KIESHA MULTANI MD DATE OF SERVICE: 03/25/19 Discharge Plan Patient Name: WILNER REED Facility: [facility]:[place] : 1950 Planned Disposition: Home with Home Health Anticipated Discharge Date: Discharge Date: Expected LOS: Initial Reviewer: [email or web address] Initial Review Date: 03/24/2019 Generated: 03/25/19 8:53 am Comments DCP- Discharge Planning Updated by [email or web address]: Randa Gannon on 03/24/19 10:[address] Patient Name: WILNER REED Admission Status: ER Accout number: [id number] Admission Date: 03-23-2019 : 1950 Admission Diagnosis:PAIN IN RIGHT LEG Attending: KIESHA MULTANI Current LOS: 1 Anticipated DC Date: Planned Disposition: Primary Insurance: MEDICARE A & B Discharge Planning Comments: CM met with patient about discharge planning. CM explained CM role and verbal consent was given to do dc assessment. CM educated on Home Health, DME and rehab services that are available. Patient states his discharge plan is to return to home and resume HH with [facility] . States home environment is a safe dc. Denies any discharge planning needs at this time. [facility] Lucia Reed [phone] will drive him home upon discharge. CM will continue to follow and assist as needed with discharge planning needs. Service Coordinator: Randa Gannon DCPIA - Discharge Planning Initial Assessment Updated by [email or web address]: Randa Gannon on 03/24/19 11:45 am * Is the patient Alert and Oriented? Yes * How many steps to enter\exit or inside your home? na * PCP dr Aguilar in [facility] * Pharmacy [facility] * Preadmission Environment Home with Family * ADLs Independent * List name and contact numbers for known caregivers / representatives who currently or will assist patient after discharge: Lucia Reed [phone] * Verbal permission to speak to the caregivers and representatives has been obtained from the patient. N/A * Community resources currently utilized Home Health * Please name any agencies selected above. [facility] * Additional services required to return to the preadmission environment? No * Can the patient safely return to the preadmission environment? Yes * Has this patient been hospitalized within the prior 30 days at any hospital? Yes Last DP export: 03/24/19 10:48 am Patient Name: WILNER REED Page [phone] at 0753 All edits/amendments must be made on the electronic document DICTATION DATE: 03/25/19751 EDUCATION SALES CONSULTANT: DUY 03/25/19751 RPT#: [id number] DC DATE: STATUS: ADM IN [facility] [address] [place] [address] END OF REPORT
--- NOTE | 2019-03-25 09:15 | NUR ---
PATIENT AWAKE, ALERT AND ORIENTED X 4. PATIENT IS STABLE . RLL DRSG C/D/I AND PROPPED ON ONE PILLOW. PATIENT UP TO BR WITH PT AND WALKER. PATIENT TOLERATED VERY WELL AND PER PT PATIENT MAY AMBULATE TO BR USING WALKER. ASSESSMENT COMPLETED. WILL CONTINUE TO MONITOR. SR UP X 2 BED IN LOW POSTION AND CALL LIGHT IN REACH.
--- NOTE | 2019-03-25 13:33 | NUR ---
Nutrition follow-up: Diet: Regular PO intake 100% of most meals Labs reviewed Wt: 205# +BM Pt scheduled for I&D of wound 03/26 Recommend starting Elton nutritional supplement, 1 pkt, BID mixed in juice to aid with wound healing. RDN following.
--- NOTE | 2019-03-25 19:38 | NUR ---
PAIN PILL AND ANTIBIOTIC GIVEN. CLEANED PT UPPER BACK. THERE IS A SMALL RASH WITH SPOTS THAT ITCH. PT STATES IT IS FROM WHEN HE BROKE OUT IN FEVER ON SATURDAY. PT VERBALIZED UNDERSTANDING OF NPO AFTER MIDNIGHT FOR SURG IN THE MORNING. PT HAS NO S/S OF DISTRESS. BEDLOW AND CALL LIGHT IN REACH. NAME AND DATE PLACED ON BOARD. WILL CPOC
--- NOTE | 2019-03-25 23:50 | NUR ---
NORCO GIVEN FOR PAIN IN RIGHT LOWER LEG. MORE DRAINAGE NOTED ON RLL DRSG THAN YESTURDAY. PT STATES IT IS FROM GETTING UP DURING DAY SHIFT. STATES THAT HE IS GOING FOR SURG IN THE MORNING. DECLINES A DRSG CHANGE AT THIS TIME. PT SIGNED ALL CONSENTS NEEDS. BLOOD,ANESTHESIA AND PROCEDURE. PRINTED INFO ON RESTRATA PT DENIES ANY QUESTIONS OR CONCERNS REGARDING PROCEDURE. VERBALIZED UNDERSTANDING OF PROCEDURE. PT BEDLOW AND CALL LIGHT IN REACH. NS INFUSING AT 125 ORDERED. PT WILL CALL FOR ASSIST WHEN NEEDED. WILL CPOC
--- NOTE | 2019-03-26 02:46 | NUR ---
PT ASLEEP. AROUSES TO NURSE DENIES ANY NEEDS. WILL CPOC
--- NOTE | 2019-03-26 04:52 | NUR ---
MORNING MEDICATIONS AND NORCO GIVEN WITH LESS THAN 20CC OF FLUID. NO S/S OF DISTRESS. WILL CPOC
[2019-03-26 05:32] VITALS: BP 94/53
[2019-03-26 06:16] LABS: BASOPHILS 0.3 % (0-2); HEMATOCRIT 30.5 % (42.0-54.0); HEMOGLOBIN 10.3 g/dL (13.5-17.5); IMMATURE GRANULOCYTES 0.2 % (0-5); LYMPHOCYTES 26.8 % (15-50); MCH 32.8 pg (26.0-34.0); MCHC 33.8 g/dL (31.0-37.0); MCV 97.1 fL (80.0-100.0); MEAN PLATELET VOLUME 10.1 fL (7.4-10.4); NEUTROPHILS 61.7 % (40-80); PLATELET COUNT 246 10x3/uL (130-400); RBC 3.14 10x6/uL (4.20-6.10); RDW 12.8 % (11.5-14.5); WBC 8.7 10x3/uL (4.8-10.8)
[2019-03-26 06:29] LABS: CALC OSMOLALITY 276 mosm/kg (275-300); CALCIUM 7.7 mg/dL (8.5-10.1); CARBON DIOXIDE 26.4 mmol/L (21.0-32.0); CHLORIDE - SERUM 108 mmol/L (98-107); CREATININE - SERUM 0.7 mg/dL (0.6-1.3); GLUCOSE 91 mg/dL (74-106); SODIUM 140 mmol/L (136-145); UREA NITROGEN 8 mg/dL (7-18); eGFR NON AFRICAN AMERICAN > 90 mL/min (90-120)
[2019-03-26 09:31] VITALS: BP 95/43
--- NOTE | 2019-03-26 12:42 | OP ---
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 POSTOPERATIVE DIAGNOSIS: Recurrent compartment syndrome of the right lower extremity. PROCEDURE: 1. Four compartment fasciotomy. 2. Hematoma removal, right lower extremity. SURGEON: Akash Meléndez MD TECHNICAL SUPPORT INTERNSHIP: JENIFER Thomas INTRAOPERATIVE COMPLICATIONS: None. SUMMARY OF PATHOLOGIC FINDINGS: The patient has extremely tight lateral compartment. The medial compartment was filled with hematoma from prior operative intervention. INDICATIONS: Mr. Reed had a spontaneous hematoma into his medial compartment, causing mild but true compartment syndrome. This was treated with a fascial compartment release done by my partner and the patient was doing fine until the morning of 03/24/2019 as he was getting ready for his bath, he felt a pop in his leg and the swelling returned. He presented to the ER, subsequently orthopedic surgery was called. The patient was taken to the OR for recurrent fasciotomies. At this time, they were left open. OPERATIVE SUMMARY IN DETAIL: After obtaining the appropriate preoperative orthopedic surgery consent as well as anesthetic consultation, evaluation and clearance, the patient was brought to the operating room and placed on the operating table in supine position. After adequate general laryngeal mask airway was administered, the patient's right lower extremity was prepped and draped in routine sterile fashion. Previously placed mary over the medial aspect were removed. This incision was reopened. Copious hematoma was found. This was evacuated. The entire length of the incision was approximately 25 cm. After copious evacuation of the muscle bellies were noted to be healthy, red and contractile. A second incision was made over the lateral and anterior compartments, both fascial planes were released with the same incision. Again, the muscle was seen to be healthy, pink and contractile. There was no evidence of muscle damage. Having completed the 4-compartment fascial release to 2 open incisions, red vessel loop was stable to either side of the incisions to gently reapproximate, but not close the incision sites. Sterile dressings were applied. The patient was awakened, taken to recovery room in stable condition. It is of note that the patient had immediate relief of his pain in the postoperative setting. TRANSINT:[id number] Voice Confirmation ID: [id number] DOCUMENT ID: [id number] OPERATIVE REPORT [id number] WILNER REED MD, AKASH CAVANAUGH at 1242 CC: [id number] DICTATION DATE: 03/25/19800 PHARMACY AIDE: 03/25/19 0837 ADM IN [facility] [address] [id number]
[2019-03-26 12:50] VITALS: BP 113/50
--- NOTE | 2019-03-26 14:37 | NUR ---
I CONCUR WITH ASSESSMENT OF THE FACILITY ENVIRONMENTAL TECHNICIAN.
--- NOTE | 2019-03-26 15:00 | NUR ---
BACK FROM SURGERY. V/S STABLE. DRSG TO LEFT LOWER LEG WITH DRSG DRY AND INTACT. DENIES ANY NEEDS
[2019-03-26 17:18] VITALS: BP 128/71
--- NOTE | 2019-03-26 19:05 | NUR ---
BEDSIDE REPORT RECEIVED. PT IS AAO, DENIES ANY NEEDS AT THIS TIME. DRSG TO RIGHT LOWER LEG CDI. SWELLING NOTED AROUND ANKLE. CAP REFILL LESS THAN 3 SEC. PEDAL PULSE +1 PT HAS NS INFUSING ORDERED. NO S/S OF DISTRESS. ASKS ABOUT PAIN PILL WILL CHECK ORDERS. NAME AND DATE PLACED ON BOARD. BEDLOW AND CALL LIGHT IN REACH. FISH CPOC
[2019-03-26 20:00] VITALS: BP 108/50
--- NOTE | 2019-03-26 20:31 | NUR ---
ANTIBIOTIC AND NORCO GIVEN. PAIN IN RIGHT LOWER LEG. PT IS AAO. CAP REFILL LESS THAN 3 SEC. PULSE ON RIGHT PEDAL WEAK, SOME SWELLING NOTED. DRSG CDI. PT HAS NS INFUSING ORDERED TO LEFT AC. PT WILL CALL FOR ASSIST WHEN NEEDED. WILL CPOC
--- NOTE | 2019-03-26 23:30 | NUR ---
TYLENOL GIVEN FOR 102.5 FEVER. PT BLANKETS TAKEN OFF ONLY ONE ON AT THIS TIME. RIGHT LEG DRSG CDI. +2 PULSE AT THIS TIME. NO S/S OF DISTRESS. WILL CPOC
[2019-03-27] VITALS: BP 118/53
--- NOTE | 2019-03-27 00:54 | NUR ---
PT TEMP IS 99.5 WILL CPOC
--- NOTE | 2019-03-27 01:35 | NUR ---
NORCO GIVEN FOR PAIN.
[2019-03-27 04:30] VITALS: BP 100/47
--- NOTE | 2019-03-27 04:30 | NUR ---
I have reviewed this patient and I concur with the Shift Assessment completed by the Licensed Practical Nurse today this shift.
[2019-03-27 06:16] LABS: BASOPHILS 0.2 % (0-2); EOSINOPHILS 2.3 % (0-7); HEMATOCRIT 30.6 % (42.0-54.0); HEMOGLOBIN 10.2 g/dL (13.5-17.5); IMMATURE GRANULOCYTES 0.2 % (0-5); LYMPHOCYTES 23.5 % (15-50); MCH 32.7 pg (26.0-34.0); MCHC 33.3 g/dL (31.0-37.0); MCV 98.1 fL (80.0-100.0); MEAN PLATELET VOLUME 10.1 fL (7.4-10.4); MONOCYTES 7.3 % (2-11); NEUTROPHILS 66.5 % (40-80); PLATELET COUNT 286 10x3/uL (130-400); RBC 3.12 10x6/uL (4.20-6.10); RDW 12.8 % (11.5-14.5); WBC 10.8 10x3/uL (4.8-10.8)
[2019-03-27 06:32] LABS: CALC OSMOLALITY 279 mosm/kg (275-300); CALCIUM 8.1 mg/dL (8.5-10.1); CARBON DIOXIDE 27.4 mmol/L (21.0-32.0); CHLORIDE - SERUM 108 mmol/L (98-107); CREATININE - SERUM 0.9 mg/dL (0.6-1.3); GLUCOSE 98 mg/dL (74-106); POTASSIUM - SERUM 4.4 mmol/L (3.5-5.1); SODIUM 141 mmol/L (136-145); UREA NITROGEN 11 mg/dL (7-18); eGFR NON AFRICAN AMERICAN 90 mL/min (90-120)
--- NOTE | 2019-03-27 06:32 | NUR ---
MORNING MEDICATIONS GIVEN. PT GIVEN A NORCO FOR PAIN. NO CHANGE ON RIGHT FOOT. ASKING FOR A YOGURT FOR BREAKFAST. STATES HIS STOMACH FEELS UPSET. PT BEDLOW AND CALL LIGHT IN REACH. WILL CPOC
--- NOTE | 2019-03-27 07:39 | NUR ---
MORNING ROUNDS MADE. PT SITTING UP IN BED RESTING COMFORTABLY. DENIES PAIN AT THIS TIME. A/O X 4. L AC IV WITH NS @ 50 ML/HR. RM AIR. BREATHING EVEN AND UNLABORED. DRSG TO RLE, C/D/I. BRIANDA WRAP. HEART RRR. DENIES FURTHER CONCERNS AT THIS TIME. FALL PRECAUTIONS IN PLACE. BED LOWERED AND LOCKED. CL IN REACH. SR UP X 2. WILL CTM.
--- NOTE | 2019-03-27 09:05 | NUR ---
PT SITTING UP IN BED, RESTING WITH EYES CLOSED. BREATHING EVEN AND UNLABORED. DENIES PAIN AT THIS TIME. VITALS STABLE. TOOK MEDS WITHOUT DIFFICULTY. FALL PRECAUTIONS IN PLACE. BED LOWERED AND LOCKED. CL IN REACH. SR UP X 3. WILL CTM.
[2019-03-27 09:40] VITALS: BP 97/47
--- NOTE | 2019-03-27 11:08 | NUR ---
PT C/O PAIN IN RLE OF A 3/10 ON A 10 POINT PAIN SCALE. NORCO GIVEN PO. SEE EMAR. NO FURTHER CONCERNS AT THIS TIME. VITALS STABLE. WILL CTM.
[2019-03-27] MEDS ORDERED: HYDROCODON-ACE1 EAC7 PO (12:22)
[2019-03-27 13:14] VITALS: BP 103/56
--- NOTE | 2019-03-27 14:03 | NUR ---
I have reviewed this patient and I concur with the Shift Assessment completed by the Licensed Practical Nurse today this shift.
--- NOTE | 2019-03-27 14:06 | NUR ---
Nutrition Follow Up: Chart reviewed. Pt is POD 1 I&D. Diet: Regular PO Intake: 100% meal avg BM: 03/24/19 Meds and Labs reviewed Rec continue current diet. Rec Elton BID. Rec MV daily. RD following.
--- NOTE | 2019-03-27 16:42 | CN ---
PATIENT NAME:WILNER REED MEDICAL RECORD: [id number] : [birth year] LOCATION:D. D.2125 ADMIT DATE: 03/23/19 ACCOUNT: [id number] CONSULTING PHYSICIAN: NILSA WATSON MD REFERRING PHYSICIAN: KIESHA MULTANI MD DATE OF CONSULTATION: 03/25/2019 DIAGNOSES: 1. Xarelto anticoagulation. 2. Hematoma. 3. Paroxysmal atrial fibrillation. 4. Hypertension. 5. Hyperlipidemia. HISTORY OF PRESENT ILLNESS: Mr. Reed has a past history of atrial fibrillation, controlled in sinus rhythm on Multaq. He was also on Xarelto. He comes in with a hematoma after a leg surgery. We are asked to comment on the Xarelto. PHYSICAL EXAMINATION: GENERAL APPEARANCE: Well-nourished, well-developed, appears stated age. Level of distress, comfortable. PSYCHIATRIC: Mental status, alert, normal affect. Orientation, oriented to time, place and person. EYES: Lids and conjunctiva, noninjected. No discharge, no pallor. ENT: Lips, teeth, gums, normal dentition. Oropharynx, no cyanosis, no pallor. NECK: Carotid arteries, bilateral normal upstroke, no bruits, no thrills. JUGULAR VEINS: No jugular venous pressure or distention. CERVICAL LYMPH NODES: Nontender, nonenlarged. THYROID: Not enlarged. Nontender. No nodules. LUNGS: Respiratory effort, unlabored. CHEST: Normal curvature. No thoracic deformity. No chest wall tenderness. Percussion, resonant. Auscultation, clear. No wheezes, no rales, no rhonchi. CARDIOVASCULAR: Precordial exam, nondisplaced. No heaves or pericardial thrills. Rate and rhythm, regular. Heart sounds, normal S1, normal S2. No S3, no gallop, no rub. Systolic murmur, not heard. Diastolic murmur, not heard. EXTREMITIES: No cyanosis, no edema. Peripheral pulses, full and equal in all extremities, except as noted. No bruits appreciated. ABDOMEN: Soft, nondistended. Normal aorta. No bruit. Nontender. No masses. Liver, nontender, no hepatomegaly. Spleen, nontender, no splenomegaly. MUSCULOSKELETAL: No joint tenderness. No joint swelling. No erythema. NEUROLOGICAL: Normal gait, normal strength, normal tone. SKIN: Warm and dry. OVERALL IMPRESSION: He maintains sinus rhythm on the Multaq. Continue Multaq and discontinue Xarelto. We are not restarting it anytime soon. We will see him in clinic in a month after his hospitalization and decide on continuing need for Xarelto at that time. TRANSINT:[id number] Voice Confirmation ID: [id number] DOCUMENT ID: [id number] CONSULT REPORT [id number] WILNER REED, NILSA PEREZ at 1642 CC: [id number] DICTATION DATE: 03/25/19 155 PARTS PRODUCT ANALYST: 03/25/19 1800 ADM IN [facility] [address] [id number]
[2019-03-27 17:45] VITALS: BP 131/58
--- NOTE | 2019-03-27 18:35 | NUR ---
PT LAYING IN BED RESTING. FAMILY AT BEDSIDE. DENIES PAIN AT THIS TIME. BED LOWERED AND LOCKED. CL IN REACH. WILL CTM.
[2019-03-27 20:00] VITALS: BP 122/50
--- NOTE | 2019-03-27 22:13 | NUR ---
PT TEMP 100.3 ADMINSTERED PRN TYLENOL PT TEMP 98.4 AT THIS TIME. PT EXPRESSED CONCERN ABOUT GETTING DISCHARGED TO GET MEDICATION IN [place] FOR AUGUSTO [place]OUNTAIN TICK FEVER. PT STATES HE WAS DIAGNOSED WITH SPOT FEVER IN [place].
[2019-03-28] VITALS (7 sets, daily range): BP systolic 111–129; BP diastolic 49–73
--- NOTE | 2019-03-28 03:32 | NUR ---
I have reviewed this patient and I concur with the Shift Assessment completed by the Licensed Practical Nurse today this shift.
--- NOTE | 2019-03-28 03:32 | NUR ---
PT COMPLAING OF MUSCLE CRAMPS AND JERKING IN RIGHT LEG. PT WOULD LIKE TO SPEAK WITH DOCTOR CONCERNING THIS MATTER. BED LOW CALL LIGHT WITHIN REACH WILL CONTINUE TO MONITOR.
[2019-03-28 04:45] LABS: BASOPHILS 0.2 % (0-2); EOSINOPHILS 2.6 % (0-7); HEMATOCRIT 31.4 % (42.0-54.0); HEMOGLOBIN 10.6 g/dL (13.5-17.5); IMMATURE GRANULOCYTES 0.3 % (0-5); LYMPHOCYTES 24.1 % (15-50); MCH 32.6 pg (26.0-34.0); MCHC 33.8 g/dL (31.0-37.0); MCV 96.6 fL (80.0-100.0); MEAN PLATELET VOLUME 9.3 fL (7.4-10.4); MONOCYTES 8.2 % (2-11); NEUTROPHILS 64.6 % (40-80); PLATELET COUNT 275 10x3/uL (130-400); RBC 3.25 10x6/uL (4.20-6.10); RDW 12.5 % (11.5-14.5); WBC 10.1 10x3/uL (4.8-10.8)
[2019-03-28 04:56] LABS: CALC OSMOLALITY 277 mosm/kg (275-300); CARBON DIOXIDE 26.1 mmol/L (21.0-32.0); CHLORIDE - SERUM 106 mmol/L (98-107); CREATININE - SERUM 0.8 mg/dL (0.6-1.3); GLUCOSE 97 mg/dL (74-106); POTASSIUM - SERUM 4.2 mmol/L (3.5-5.1); SODIUM 140 mmol/L (136-145); UREA NITROGEN 10 mg/dL (7-18); eGFR NON AFRICAN AMERICAN > 90 mL/min (90-120)
--- NOTE | 2019-03-28 07:00 | NUR ---
RECEIVED REPORT. ASSUMED CARE OF PATIENT. PATIENT RESTING WITH EYES CLOSED. RESP EVEN AND UNLABORED. CALL LIGHT WITHIN REACH. RIGHT LEG ELEVATED ON PILLOWS. BRIANDA BANDAGE WRAPPED FROM RIGHT ANKLE TO KNEE. NO DISTRESS.
--- NOTE | 2019-03-28 08:45 | NUR ---
MEDICATED FOR PAIN AT THIS TIME. NO DISTRESS. CALL LIGHT WITHIN REACH.
--- NOTE | 2019-03-28 12:56 | NUR ---
MEDICATED FOR PAIN. NO DISTRESS. PATIENT CONTINUES TO WANT TO GO HOME AND STATES THAT [facility] WAS HERE AND STATES THEY SAID THEY DO NOT HAVE A PROBLEM WITH HIM GOING HOME AND WILL PUT IT IN THEIR NOTES. UNSURE OF WHO PATIETN IS REFERRING TO TELLING HIM THIS.
--- NOTE | 2019-03-28 13:06 | NUR ---
SPOKE WITH AISHA AND PER DR. TSAI, PATIENT IS NOT LEAVING DUE TO SPIKE IN TEMP AT 2000 LAST PM. PATIENT INFORMED OF THIS.
--- NOTE | 2019-03-28 15:39 | NUR ---
URINAL EMPTYIED. NO DISTRESS. REQUESTING PAIN PILL. EXPLAINED TO SOON TO ADMINISTER. VERBALIZED UNDERSTANDING. CALL LIGHT WITHIN REACH.
--- NOTE | 2019-03-28 17:00 | NUR ---
MEDICATED FOR PAIN. URINAL EMPTYIED. NO DISTRESS. PATIENT VERY PLESANT. CALL LIGHT WITHIN REACH.
--- NOTE | 2019-03-28 19:41 | NUR ---
RECEIVED REPORT, WILL ASSUME CARE OF PT, DENIES ANY NEEDS AT THIS TIME, R. LEG ELEVATED ON A PILLOW, BED IS LOW, SRX2, CALL LIGHT IN REACH, WILL CONTINUE PLAN OF CARE
--- NOTE | 2019-03-28 21:32 | NUR ---
PM MEDS PASSES, ASK FOR PAIN MEDS, GAVE NORCO ORDERED, GAVE FRESH ICE WATER, WILL CONTINUE PLAN OF CARE
--- NOTE | 2019-03-29 02:19 | NUR ---
I have reviewed this patient and I concur with the Shift Assessment completed by the Licensed Practical Nurse today this shift.
[2019-03-29 04:30] VITALS: BP 112/57
[2019-03-29 04:41] LABS: BASOPHILS 0.2 % (0-2); EOSINOPHILS 2.8 % (0-7); HEMATOCRIT 31.5 % (42.0-54.0); HEMOGLOBIN 10.7 g/dL (13.5-17.5); IMMATURE GRANULOCYTES 0.3 % (0-5); LYMPHOCYTES 24.8 % (15-50); MCH 32.8 pg (26.0-34.0); MCV 96.6 fL (80.0-100.0); MEAN PLATELET VOLUME 9.5 fL (7.4-10.4); MONOCYTES 6.8 % (2-11); NEUTROPHILS 65.1 % (40-80); PLATELET COUNT 285 10x3/uL (130-400); RBC 3.26 10x6/uL (4.20-6.10); RDW 12.5 % (11.5-14.5); WBC 9.5 10x3/uL (4.8-10.8)
[2019-03-29 05:07] LABS: CALC OSMOLALITY 277 mosm/kg (275-300); CALCIUM 8.2 mg/dL (8.5-10.1); CHLORIDE - SERUM 106 mmol/L (98-107); CREATININE - SERUM 0.8 mg/dL (0.6-1.3); GLUCOSE 92 mg/dL (74-106); POTASSIUM - SERUM 4.2 mmol/L (3.5-5.1); SODIUM 140 mmol/L (136-145); UREA NITROGEN 11 mg/dL (7-18); eGFR NON AFRICAN AMERICAN > 90 mL/min (90-120)
[2019-03-29 07:56] VITALS: BP 129/65
[2019-03-29] MEDS ORDERED: SULFAMETHOXAZOL1 TA3 PO (11:02)
[2019-03-29] MEDS ORDERED: VIBRAMYCIN 100100 MG PO (11:02)
[2019-03-29 11:22] VITALS: BP 109/53
--- NOTE | 2019-03-29 12:56 | NUR ---
CALL TO MORAIMA PAT APRN, RE PT ON AMOXICILLIN AND FLAGYL AT ADMISSION. ADVISED TO D/C, AND BEGIN NEW ATB RX'S ORDERED FOR HOME.
--- NOTE | 2019-03-29 13:02 | NUR ---
NOTE PER DR WATSON ON 03/27 THAT THEY ARE D/C'ING [facility] AND WILL F/U IN OFFICE IN ONE MONTH TO REEVALUATE.
--- NOTE | 2019-03-29 13:53 | NUR ---
DC'D PT'S 20G IV WITH CATHETER TIP IN PLACE. DISCHARGE INSTRUCTIONS GIVEN. PT DENIES ANY PAIN OR NEEDS AT THIS TIME. VITALS STABLE. WHEELED PT TO FRONT OF HOSPITAL TO RIDE.
--- NOTE | 2019-03-29 14:16 | MORECARE ---
CASE MANAGEMENT DISCHARGE SUMMARY PATIENT: WILNER REED UNIT: [id number] ADM DATE: 03/23/19 AGE: 68 : 52 SEX: M ROOM/BED: D.7411 AUTHOR: MARCIADOC PHYSICIAN: REFERRING PHYSICIAN: KIESHA MULTANI MD DATE OF SERVICE: 03/29/19 Discharge Plan Patient Name: WILNER REED Facility: [facility]:[place] : 1950 Planned Disposition: Home with Home Health Anticipated Discharge Date: Discharge Date: 03/29/2019 Expected LOS: Initial Reviewer: [email or web address] Initial Review Date: 03/24/2019 Generated: 03/29/19 3:16 pm Comments DCP- Discharge Planning Updated by [email or web address]: Randa Gannon on 03/29/19 1:[address] Patient Name: WILNER REED Admission Status: ER Accout number: [id number] Admission Date: 03-23-2019 : 1950 Admission Diagnosis:PAIN IN RIGHT LEG Attending: KIESHA MULTANI Current LOS: 6 Anticipated DC Date: Planned Disposition: Home with Home Health Primary Insurance: MEDICARE A & B Discharge Planning Comments: CM CALLED [facility] IN [place] TO EXPLAIN DC INSTRUCTIONS FROM DR. BARBOSA. HH TO CALL DR SHEA OFFICE IN AM TO FOLLOW UP WITH THE NEED OF HH AND TYPE DRESSING CHANGES HE WANTS. Gymnastic Coach: Randa Gannon DCP- Discharge Planning Updated by [email or web address]: Randa Gannon on 03/24/19 10:[address] Patient Name: WILNER REED Admission Status: ER Accout number: [id number] Admission Date: 03-23-2019 : 1950 Admission Diagnosis:PAIN IN RIGHT LEG Attending: KIESHA MULTANI Current LOS: 1 Anticipated DC Date: Planned Disposition: Primary Insurance: MEDICARE A & B Discharge Planning Comments: CM met with patient about discharge planning. CM explained CM role and verbal consent was given to do dc assessment. CM educated on Home Health, DME and rehab services that are available. Patient states his discharge plan is to return to home and resume HH with [facility] . States home environment is a safe dc. Denies any discharge planning needs at this time. States Lucia Reed [phone] will drive him home upon discharge. CM will continue to follow and assist as needed with discharge planning needs. Gymnastic Coach: Randa Gannon DCPIA - Discharge Planning Initial Assessment Updated by [email or web address]: Randa Gannon on 03/24/19 11:45 am * Is the patient Alert and Oriented? Yes * How many steps to enter\exit or inside your home? na * PCP dr Aguilar in [facility] * [facility] * Preadmission Environment Home with Family * ADLs Independent * List name and contact numbers for known caregivers / representatives who currently or will assist patient after discharge: Lucia Reed [phone] * Verbal permission to speak to the caregivers and representatives has been obtained from the patient. N/A * Community resources currently utilized Home Health * Please name any agencies selected above. [facility] * Additional services required to return to the preadmission environment? No * Can the patient safely return to the preadmission environment? Yes * Has this patient been hospitalized within the prior 30 days at any hospital? Yes Coverage Notice Reviewer: [id number] - Randa Gannon Notice Issued Date-Time: 03/29/2019 11:40 Notice Type: IM Discharge Notice Notice Delivered To: Patient Relationship to Patient: Self Choir Teacher Name: Delivery Method: HAND - Hand Delivered So Days: Prior Verbal Notification: Recipient Understood Notice: Yes Recipient Signature: Yes Med Rec Note Co-signed by Attending: Coverage Notice Comment: Last DP export: 03/25/19 6:53 am Patient Name: WILNER REED Page [id number] at 1416 All edits/amendments must be made on the electronic document DICTATION DATE: 03/29/191415 GOVERNMENT RELATIONS MANAGER: DUY 03/29/191415 RPT#: [id number] DC DATE:03/29/19 STATUS: DIS IN [facility] [address] [place] [address] END OF REPORT
--- NOTE | 2019-03-30 09:20 | MORECARE ---
CASE MANAGEMENT DISCHARGE SUMMARY PATIENT: WILNER REED UNIT: [id number] ADM DATE: 03/23/19 AGE: 68 : 52 SEX: M ROOM/BED: D.0618 AUTHOR: MARCIADOC PHYSICIAN: REFERRING PHYSICIAN: KIESHA MULTANI MD DATE OF SERVICE: 03/30/19 Discharge Plan Patient Name: WILNER REED Facility: [facility]:[place] : 1950 Planned Disposition: Home with Home Health Anticipated Discharge Date: 03/29/19 Discharge Date: 03/29/2019 Expected LOS: 6 Initial Reviewer: [email or web address] Initial Review Date: 03/24/2019 Generated: 03/30/19 10:19 am Comments DCP- Discharge Planning Updated by [id number]: Randa Gannon on 03/29/19 1:[address] Patient Name: WILNER REED Admission Status: ER Accout number: [id number] Admission Date: 03-23-2019 : 1950 Admission Diagnosis:PAIN IN RIGHT LEG Attending: KIESHA MULTANI Current LOS: 6 Anticipated DC Date: Planned Disposition: Home with Home Health Primary Insurance: MEDICARE A & B Discharge Planning Comments: CM CALLED [facility] IN [place] TO EXPLAIN DC INSTRUCTIONS FROM DR. BARBOSA. HH TO CALL DR SHEA OFFICE IN AM TO FOLLOW UP WITH THE NEED OF HH AND TYPE DRESSING CHANGES HE WANTS. Lead Manufacturing Technician: Randa Gannon DCP- Discharge Planning Updated by [email or web address]: Randa Gannon on 03/24/19 10:[address] Patient Name: WILNER REED Admission Status: ER Accout number: [id number] Admission Date: 03-23-2019 : 1950 Admission Diagnosis:PAIN IN RIGHT LEG Attending: KIESHA MULTANI Current LOS: 1 Anticipated DC Date: Planned Disposition: Primary Insurance: MEDICARE A & B Discharge Planning Comments: CM met with patient about discharge planning. CM explained CM role and verbal consent was given to do dc assessment. CM educated on Home Health, DME and rehab services that are available. Patient states his discharge plan is to return to home and resume HH with [facility] . States home environment is a safe dc. Denies any discharge planning needs at this time. [facility] Lucia Reed [phone] will drive him home upon discharge. CM will continue to follow and assist as needed with discharge planning needs. Lead Manufacturing Technician: Randa Gannon DCPIA - Discharge Planning Initial Assessment Updated by [email or web address]: Randa Gannon on 03/24/19 11:45 am * Is the patient Alert and Oriented? Yes * How many steps to enter\exit or inside your home? na * PCP [facility] Aguilar in [facility] * [facility] * Preadmission Environment Home with Family * ADLs Independent * List name and contact numbers for known caregivers / representatives who currently or will assist patient after discharge: Lucia Reed [phone] * Verbal permission to speak to the caregivers and representatives has been obtained from the patient. N/A * Community resources currently utilized Home Health * Please name any agencies selected above. [facility] * Additional services required to return to the preadmission environment? No * Can the patient safely return to the preadmission environment? Yes * Has this patient been hospitalized within the prior 30 days at any hospital? Yes Coverage Notice Reviewer: [id number] - Randa Gannon Notice Issued Date-Time: 03/29/2019 11:40 Notice Type: IM Discharge Notice Notice Delivered To: Patient Relationship to Patient: Self Finish Patcher Name: Delivery Method: HAND - Hand Delivered So Days: Prior Verbal Notification: Recipient Understood Notice: Yes Recipient Signature: Yes Med Rec Note Co-signed by Attending: Coverage Notice Comment: Last DP export: 03/29/19 1:16 p Patient Name: WILNER REED Page [phone] at 0920 All edits/amendments must be made on the electronic document DICTATION DATE: 03/30/19918 OIL REFINERY OPERATOR: DUY 03/30/19918 RPT#: [id number] DC DATE:03/29/19 STATUS: DIS IN [facility] [address] [place] [address] END OF REPORT
== END 2019-03-29 14:04 | disposition home health service (06) | DRG 940 ==
LOC: D.ER 23:51 → D.M2 03-23 01:09 → D.SDCHOLD 03-24 12:59 → D.M2 03-24 13:00
PROVIDERS: Family Medicine; Internal Medicine Nephrology; ADMIT Family Medicine; ATTEND Family Medicine
PROC: 0KNS0ZZ Release Right Lower Leg Muscle, Open Approach (ICD-10-PCS; principal; 2019-03-24)
PROC: 0KNS0ZZ Release Right Lower Leg Muscle, Open Approach (ICD-10-PCS; 2019-03-24)
PROC: 0KNS0ZZ Release Right Lower Leg Muscle, Open Approach (ICD-10-PCS; 2019-03-24)
PROC: 0KNS0ZZ Release Right Lower Leg Muscle, Open Approach (ICD-10-PCS; 2019-03-24)
PROC: 0JCN0ZZ Extirpation of Matter from Right Lower Leg Subcutaneous Tissue and Fascia, Open Approach (ICD-10-PCS; 2019-03-24)
PROC: 0J9N0ZZ Drainage of Right Lower Leg Subcutaneous Tissue and Fascia, Open Approach (ICD-10-PCS; 2019-03-26)
PROC: 0HRKXK3 Replacement of Right Lower Leg Skin with Nonautologous Tissue Substitute, Full Thickness, External Approach (ICD-10-PCS; 2019-03-26)
DX: T79.A21D Traumatic compartment syndrome of right lower extremity, subsequent encounter (principal); A93.2 Colorado tick fever; W19.XXXA Unspecified fall, initial encounter; S80.11XD Contusion of right lower leg, subsequent encounter; E03.9 Hypothyroidism, unspecified; Z87.891 Personal history of nicotine dependence; I48.0 Paroxysmal atrial fibrillation; I10 Essential (primary) hypertension; E78.5 Hyperlipidemia, unspecified; Z79.01 Long term (current) use of anticoagulants

== ENCOUNTER 2019-04-04 13:47 | Emergency (ER) | payer MEDICARE, OTHER ==
[~2019-04-04] VITALS: Ht 170.2 cm; Wt 90.9 kg
[~2019-04-04 13:47] MED LIST changes: +AMOX; +CIPRO500 MG PO; +FLAGYL500 MG PO; +HYDROCODON-ACE1 EAC7 PO; +K CLAV; +SULFAMETHOXAZOL1 TA3 PO; +VIBRAMYCIN 100100 MG PO
[2019-04-04 13:59] VITALS: Ht 170.2 cm; Wt 90.9 kg
[2019-04-04] MEDS ORDERED: CLEOCIN HCL150 MG PO (14:54)
[2019-04-04 15:30] VITALS: BP 132/74
== END 2019-04-04 15:31 | disposition home or self-care (01) ==
LOC: D.ER 13:47
DX: L76.82 Other postprocedural complications of skin and subcutaneous tissue (principal)

== ENCOUNTER 2019-10-16 04:55 | Emergency (ER) | payer MEDICARE, OTHER ==
[~2019-10-16] VITALS: Ht 170.2 cm; Wt 90.9 kg
[~2019-10-16 04:55] MED LIST changes: +CLEOCIN HCL150 MG PO
[2019-10-16 05:02] VITALS: Ht 170.2 cm; Wt 90.9 kg
[2019-10-16] MEDS ORDERED: VASOTEC10 MG PO (05:16)
[2019-10-16] MEDS ORDERED: RANITIDINE HCL150 M1 PO (05:16)
[2019-10-16] MEDS ORDERED: TESTOSTERONE (05:38)
[2019-10-16 05:49] LABS: BASOPHILS 0.1 % (0-2); EOSINOPHILS 1.3 % (0-7); HEMATOCRIT 53.1 % (42.0-54.0); HEMOGLOBIN 18.6 g/dL (13.5-17.5); IMMATURE GRANULOCYTES 0.4 % (0-5); LYMPHOCYTES 18.7 % (15-50); MCH 33.6 pg (26.0-34.0); MEAN PLATELET VOLUME 10.2 fL (7.4-10.4); MONOCYTES 5.1 % (2-11); NEUTROPHILS 74.4 % (40-80); PLATELET COUNT 275 10x3/uL (130-400); RBC 5.53 10x6/uL (4.20-6.10); RDW 13.4 % (11.5-14.5); WBC 14.8 10x3/uL (4.8-10.8)
[2019-10-16 05:50] LABS: ANION GAP 14.2 mmol/L (8-16); CALCIUM 8.6 mg/dL (8.5-10.1); CARBON DIOXIDE 26.2 mmol/L (21.0-32.0); CREATININE - SERUM 1.1 mg/dL (0.6-1.3); POTASSIUM - SERUM 4.4 mmol/L (3.5-5.1)
[2019-10-16 05:55] LABS: ALBUMIN 3.5 g/dL (3.4-5.0); BILIRUBIN - TOTAL 0.87 mg/dL (0.2-1.3); C-REACTIVE PROTEIN 2.6 mg/dL (0.0-0.9); PROTEIN - SERUM 7.2 g/dL (6.4-8.2)
[2019-10-16 06:20] LABS: APPEARANCE CLEAR (CLEAR); BILIRUBIN NEGATIVE (NEGATIVE); COLOR STRAW (YELLOW); GLUCOSE NEGATIVE (NEGATIVE); KETONE NEGATIVE (NEGATIVE); NITRITE NEGATIVE (NEGATIVE); PROTEIN NEGATIVE (NEGATIVE); UROBILINOGEN NORMAL (NORMAL)
[2019-10-16] MEDS ORDERED: DIFLUCAN100 MG PO (06:53)
[2019-10-16] MEDS ORDERED: CLEOCIN HCL300 MG PO (06:53)
[2019-10-16 07:28] LABS: ERYTHROCYTE SEDIMENTATION RATE 2 mm/hr (0-20)
[2019-10-16 07:32] VITALS: BP 149/75
== END 2019-10-16 07:04 | disposition home or self-care (01) ==
LOC: D.ER 04:55
PROVIDERS: Family Medicine
DX: B35.6 Tinea cruris (principal); L03.90 Cellulitis, unspecified